=== PATIENT | male | born 1970 | race Caucasian/White ===

== ENCOUNTER 2017-06-25 16:32 | Emergency (ER) | payer OTHER ==
[~2017-06-25] VITALS: Ht 182.9 cm; Wt 148.3 kg
[~2017-06-25 16:32] MED LIST: MECLIZINE HCL25 MG PO; PRINIVIL20 MG PO; ZOFRAN ODT4 MG PO
[2017-06-25 16:54] LABS: ABSOLUTE BASOPHILS 0.1 thou/uL (0.0-0.2); ABSOLUTE EOSINOPHILS 0.4 thou/uL (0.0-0.7); ABSOLUTE LYMPHOCYTES 2.4 thou/uL (0.8-5.3); ABSOLUTE MONOCYTES 1.3 thou/uL (0.0-1.2); ABSOLUTE NEUTROPHILS 10.4 thou/uL (1.6-8.1); EOSINOPHILS 2.6 %; HEMATOCRIT 44.2 % (42.0-52.0); HEMOGLOBIN 14.6 gm/dL (14.0-18.0); LYMPHOCYTES 16.1 %; MCH 27.9 pg (26.0-34.0); MCHC 33.1 g/dL (28.0-37.0); MCV 84.3 fL (80.0-100.0); MONOCYTES 9.1 %; MPV 7.6 fl. (7.2-11.1); NUCLEATED RBCS 0 /100WBC; PLATELET COUNT* 337 thou/uL (150-400); POLYS 71.2 %; RBC 5.24 mil/uL (4.50-6.00); RDW-CV 13.1 % (10.5-14.5); WBC 14.6 thou/uL (4.0-11.0)
[2017-06-25 17:06] LABS: CALCIUM 9.1 mg/dL (8.5-10.1); POTASSIUM 4.2 mmol/L (3.5-5.1)
[2017-06-25 17:09] LABS: URINE BILIRUBIN NEGATIVE (Negative); URINE BLOOD NEGATIVE (Negative); URINE CLARITY CLEAR; URINE COLOR YELLOW; URINE GLUCOSE-RANDOM NEGATIVE (Negative); URINE KETONES NEGATIVE (Negative); URINE LEUKOCYTES-REFLEX NEGATIVE (Negative); URINE NITRITE-REFLEX NEGATIVE (Negative); URINE PROTEIN TRACE (Negative); URINE SPECIFIC GRAVITY 1.015 (1.005-1.030)
[2017-06-25 17:10] LABS: ALBUMIN 3.6 g/dL (3.4-5.0); TOTAL BILIRUBIN 0.5 mg/dL (<0.1-1.0)
[2017-06-25] MEDS ORDERED: PHENERGAN 25 MG25 M1 PO (19:38)
[2017-06-25] MEDS ORDERED: HYDROCODONE-AP1 EAC6 PO (19:38)
[2017-06-25 19:52] VITALS: BP 105/66
--- NOTE | 2017-06-27 09:09 | EKG ---
[place] [address] ELECTROCARDIOGRAM REPORT Name: PERI NEIL Room: [facility]#: [id number] Admission: 06/25/17 Attend Phys: Discharge: 06/25/17 Date of : 70 Report #: [id number] THIS REPORT FOR: //name// [facility] ED Test Date: 2017-06-25 Test Time: 16:45:44 Pat Name: PERI NEIL Department: Room: Gender: M Entertainment Reporter: KIARA : 1970 Requested By: Ashwini Yo Order Number: [id number] Linda MD: Juan Montesinos Measurements Intervals [place] Rate: 113 P: 41 MO: 136 QRS: -21 QRSD: 89 T: 43 QT: 320 QTc: 439 Interpretive Statements Sinus tachycardia Borderline left axis deviation Incomplete right bundle-branch block Possible anteroseptal infarct, old Compared to ECG 05/01/2014 15:33:38 Myocardial infarct finding now present Sinus rhythm no longer present Electronically Signed On 06-27-2017 9:08:53 CDT by Juan Montesinos [email or web address] <ELECTRONICALLY SIGNED> By: Juan Montesinos MD, [facility] 06/27/17 [id number] Juan Montesinos MD, [facility] /EPI
== END 2017-06-25 19:55 | disposition home or self-care (01) ==
LOC: M.ERS 16:32
PROVIDERS: Physician Assistant
DX: K85.90 Acute pancreatitis without necrosis or infection, unspecified (principal); I10 Essential (primary) hypertension; E66.9 Obesity, unspecified; M19.90 Unspecified osteoarthritis, unspecified site; Z90.89 Acquired absence of other organs; Z68.41 Body mass index [BMI] 40.0-44.9, adult